=== PATIENT | female | born 1965 | race Caucasian/White ===

== ENCOUNTER 2017-09-04 10:22 | Day surgery (SDC) | END 2017-09-04 16:58 | disposition home or self-care (01) ==

== ENCOUNTER 2017-09-14 08:09 | Inpatient (IN) | END 2017-09-17 17:15 | disposition home or self-care (01) | DRG 857 ==

== ENCOUNTER 2018-09-07 08:44 | Day surgery (SDC) | payer OTHER ==
[~2018-09-07] VITALS: Ht 161.3 cm; Wt 78.9 kg
[2018-09-07] VITALS (13 sets, daily range): BP systolic 110–129; BP diastolic 65–76; PULSE 50–66; RESP 6–23; Ht 161.3 cm; Wt 78.9 kg
[~2018-09-07 08:44] MED LIST: ACETAMINOPHEN 500 MG TAB PO ONE; LEVO750T8 PO; RIFA300C3 PO
[2018-09-07] MEDS ORDERED: LACTATED RINGER'S 1,000 ML IV SCH (09:30)
--- NOTE | 2018-09-07 10:23 | PREAC ---
Date/Time of Note Date/Time of Note DATE: 09/07/18 TIME: 10:21 Anesthesia Eval and Record Evaluation Time Pre-Procedure Interview DATE: 09/07/18 TIME: 10:21 Age 53 Sex female NPO: 8 hrs Preoperative diagnosis suture retention R elbow Planned procedure R elbow scar revision Past Medical History Past Medical History: Includes GI: Obesity Surgery & Anesthesia Issues No known issue Meds Anticoagulation: No Beta Devon within 24 hr: No Reason Beta Devon not given: Pt. not on B-Devon Discontinued Scripts Rifampin* (Rifampin*) 300 Mg Capsule, 600 MG PO DAILY for 14 Days, #14 CAP Prov:YOGESH DE JESUS MD 09/17/17 Levofloxacin* (Levofloxacin*) 750 Mg Tablet, 750 MG PO DAILY for 14 Days, #14 TAB Prov:YOGESH DE JESUS MD 09/17/17 Current Medications Lactated Ringer's 1,000 ml @ 25 mls/hr Q24H IV Last administered on 09/07/18at 09:29; Admin Dose 25 MLS/HR; Start 09/07/18 at 09:30 Meds reviewed: Yes Allergies Coded Allergies: latex (Verified Allergy, Intermediate, RASH, 09/07/18) sulfamethoxazole (Verified Allergy, Unknown, RASH, 09/07/18) trimethoprim (Verified Allergy, Unknown, RASH, 09/07/18) Allergies Reviewed: Yes Labs/Studies Labs Reviewed: Reviewed by anesthesiologist test: Negative Studies: ECG (nml, nsr), CXR (no active disease) Pre-procedure Exam Last vitals Vital Signs Date Temp Pulse Resp B/P (MAP) Pulse Ox O2 O2 Flow FiO2 Time Delivery Rate 09/07/18 98.5 59 16 121/67 100 Room Air 09:43 (85) Airway: Adequate mouth opening, Adequate thyromental dist Mallampati: Mallampati II Teeth: Abnormal (denture lower removed; missing teeth) Lung: Normal Heart: Normal ASA Physical Status ASA physical status: 2 Emergency: None Planned Anesthetic General/MAC: LMA Pre-operative Attestations Prior to commencing anesthesia and surgery, the patient was re-evaluated, there was verification of: *The patient's identity *The results of appropriate recent lab work and preoperative vital signs *The above evaluation not changing prior to induction *Anesthetic plan, risk benefits, alternative and complications discussed with patient/family; questions answered; patient/family understands, accepts and wishes to proceed. JORGE SALTER Sep 07, 2018 10:23
[2018-09-07] MEDS ORDERED: DIPHENHYDRAMINE 50 MG INJ IV PRN (10:30)
[2018-09-07] MEDS ORDERED: FENTAnyl 50 MCG/ML VIAL IV PRN ×2 (10:30)
[2018-09-07] MEDS ORDERED: DESFLURANE 15 MIN ONE (10:30)
[2018-09-07] MEDS ORDERED: LABETALOL HCL 20MG INJ IV PRN (10:30)
[2018-09-07] MEDS ORDERED: ALBUTEROL 0.083% (NEB) 2.5 MG/3 ML AMP HHN PRN (10:30)
[2018-09-07] MEDS ORDERED: MEPERIDINE 25 MG INJ IV PRN (10:30)
[2018-09-07] MEDS ORDERED: ONDANSETRON 4 MG INJ IV PRN ×2 (10:30→11:30)
[2018-09-07] MEDS ORDERED: HYDROmorphONE 1 MG/5 ML IV SYRINGE IV PRN ×3 (10:30)
[2018-09-07] MEDS ORDERED: OXYCODONE/ACETAMINOPHEN (5/325) TAB PO PRN ×2 (10:30)
[2018-09-07] MEDS ORDERED: morphine 2 MG INJ IV PRN ×3 (10:30→11:30)
[2018-09-07] MEDS ORDERED: POLYMYXIN/BACITRACIN 1L IRRIG ONE (10:33)
--- NOTE | 2018-09-07 10:34 | HPN ---
Date/Time of Note Date/Time of Note DATE: 09/07/18 TIME: 10:33 Interval H&P Admission Note Pt. seen H&P reviewed: No system changes DON MCCLENDON MD Sep 07, 2018 10:34
[2018-09-07] MEDS ORDERED: BUPIVACAINE 0.5%/EPI (SDV) 30 ML INJ ONE (10:40)
[2018-09-07] MEDS ORDERED: FENTAnyl 50 MCG/ML VIAL ONE (10:49)
[2018-09-07] MEDS ORDERED: FAMOTIDINE 20 MG INJ ONE (10:49)
[2018-09-07] MEDS ORDERED: PROPOFOL 40 ML ONE (10:49)
[2018-09-07] MEDS ORDERED: LIDOCAINE 2% (SDV) 5 ML INJ ONE (10:49)
[2018-09-07] MEDS ORDERED: MIDAZOLAM 1 MG/ML 2 ML INJ ONE (10:49)
[2018-09-07] MEDS ORDERED: CEFAZOLIN 1 GM INJ ONE (10:49)
[2018-09-07] MEDS ORDERED: ONDANSETRON 4 MG INJ ONE (10:49)
[2018-09-07] MEDS ORDERED: KETOROLAC 15 MG INJ IM STA (11:25)
--- NOTE | 2018-09-07 11:25 | OPR ---
Date/Time of Note Date/Time of Note DATE: 09/07/18 TIME: 11:21 Operative Report Procedure Date: Sep 07, 2018 Preoperative Diagnosis Right radial head fracture, retained sutures Postoperative Diagnosis Same Operation/Procedure Performed Right elbow revision of scar with removal of sutures Surgeon see signature line Small Offset Printer None Anesthesia Type: general, other (local) Estimated Blood Loss: minimal Transfusion none Specimen None Grafts/Implants none Complications none Pt Condition Post Procedure: stable Disposition: PACU Indications This patient had a previous right elbow radial head replacement. She separately had an infection for which she had another procedure. She now is 1 year out and has had prominence of underlying sutures which have irritated her skin. She now presents for elective removal of sutures. Risks and benefits were discussed informed consent was obtained. Procedure Description The patient's correct extremity was identified in the preoperative area. She was brought back to the operating room where she had general anesthesia. She had preoperative antibiotics. The right upper extremity was prepped and draped in central manner. Time out was performed. I then used an Esmarch to exsanguinate the extremity with the shoulder high tourniquet 250 mmHg. The scar from the previous incision was utilized I then easily encountered the PDS sutures. the PDS sutures in their entirety were taken out. There was sent for specimen. I then irrigated the wound let down tourniquet obtain adequate hemostasis the wound was then closed with 2-0 Vicryl and 3-0 nylon. Dry sterile dressings applied patient was then extubated and transported to the recovery room in stable condition. DON MCCLENDON MD Sep 07, 2018 11:25
[2018-09-07] MEDS ORDERED: HYDROCODONE/APAP (5/325) TAB PO PRN ×2 (11:30)
--- NOTE | 2018-09-07 11:34 | PAC ---
Date/Time of Note Date/Time of Note DATE: 09/07/18 TIME: 11:33 Post-Anesthesia Notes Post-Anesthesia Note Last documented vital signs Vital Signs Date Temp Pulse Resp B/P Pulse Ox O2 O2 Flow FiO2 Time (MAP) Delivery Rate 09/07/18 98.5 97.9 59 65 16 16 121/67 100 99 Room 09:43 112 (85) 110 Air face 8 /65 mask 8L Activity: WNL Respiratory function: WNL Cardiovascular function: WNL Mental status: Baseline Pain reasonably controlled: Yes Hydration appropriate: Yes Nausea/Vomiting absent: Yes JORGE SALTER Sep 07, 2018 11:34
== END 2018-09-07 13:35 | disposition home or self-care (01) ==
LOC: SDS 08:44
PROVIDERS: ATTEND Specialist
DX: S52.501D Unspecified fracture of the lower end of right radius, subsequent encounter for closed fracture with routine healing (principal); X58.XXXD Exposure to other specified factors, subsequent encounter
CPT/HCPCS: 24370; 81001; 86850; 86900; 86901; 88300; J0690; J1885; J2175; J2250; J2405; J3010; Z7512; Z7610